=== PATIENT | male | born 2000 | race Caucasian/White ===

== ENCOUNTER 2020-04-29 13:27 | Emergency (ER) | payer OTHER ==
[~2020-04-29] VITALS: Ht 165.1 cm; Wt 74.1 kg
[2020-04-29 14:45] LABS: BASO # 0.1 10^3/uL (0.0-0.2); BASO % 0.3 % (0.0-1.0); EOS % 0.2 % (0.0-3.0); HEMATOCRIT 52.5 % (42.0-52.0); HEMOGLOBIN 17.7 g/dl (13.5-17.5); LYMPH # 0.7 10^3/uL (1.5-5.0); LYMPH % 4.6 % (24.0-44.0); MEAN CORPUSCULAR HEMOGLOBIN 30.9 pg (27.0-33.0); MEAN CORPUSCULAR HGB CONC 33.7 g/dl (32.0-36.5); MEAN CORPUSCULAR VOLUME 91.8 fl (80.0-96.0); MONO # 0.6 10^3/uL (0.0-0.8); NEUTROPHILS # 13.3 10^3/uL (1.5-8.5); NEUTROPHILS % 90.4 % (36.0-66.0); PLATELET COUNT, AUTOMATED 274 10^3/uL (150-450); RED BLOOD COUNT 5.72 10^6/uL (4.30-6.10); WHITE BLOOD COUNT 14.7 10^3/uL (4.0-10.0)
[2020-04-29] MEDS ORDERED: ONDANSETRON 4MG/2ML VIAL IV ONE (15:00)
[2020-04-29] MEDS ORDERED: NS 1,000 ML IV ONE (15:00)
[2020-04-29 15:20] LABS: ALBUMIN 4.7 GM/DL (3.2-5.2); ALT/SGPT 53 U/L (12-78); BILIRUBIN,DIRECT 0.1 MG/DL (0.0-0.2); BILIRUBIN,TOTAL 0.6 MG/DL (0.2-1.0); CK-MB VALUE MASS 1.1 NG/ML (<3.6); CPK CREATINE PHOSPHOKINASE 119 U/L (39-308); LIPASE 163 U/L (73-393); MB/CK RELATIVE INDEX 0.92 (< OR =4); TOTAL PROTEIN 8.7 GM/DL (6.4-8.2); TROPONIN I < 0.02 NG/ML (< 0.10)
--- NOTE | 2020-04-29 16:11 | ECGEPIP ---
[facility] - ED Test Date: 2020-04-29 Pat Name: ASHELY PAYTON Department: Room: - Gender: Male [place]: JFOX : 2000 Requested By: ITALIA Moreland PA-C Order Number: [id number] Reading MD: Jyothi Domínguez Measurements Intervals [place] Rate: 67 P: 10 KS: 152 QRS: 39 QRSD: 105 T: 43 QT: 391 QTc: 413 Interpretive Statements SINUS RHYTHM WITH MARKED SINUS ARRHYTHMIA NONSPECIFIC ST T WAVE CHANGES NO PRIOR ECG FOR COMPARISON Electronically Signed on 04-29-2020 16:11:33 EDT by Jyothi Domínguez
[2020-04-29] MEDS ORDERED: ISOVUE-370 76% 100ML VIAL As Ordered ONE (17:28)
--- NOTE | 2020-04-29 18:30 | REPVR ---
PROCEDURE INFORMATION: Exam: CT Abdomen And Pelvis With Contrast Exam date and time: 04/29/2020 5:19 PM Age: 19 years old Clinical indication: Abdominal pain; Additional info: L sided abd pain TECHNIQUE: Imaging protocol: Computed tomography of the abdomen and pelvis with intravenous contrast. Radiation optimization: All CT scans at this facility use at least one of these dose optimization techniques: automated exposure control; mA and/or kV adjustment per patient size (includes targeted exams where dose is matched to clinical indication); or iterative reconstruction. Contrast material: ISOVUE 370; Contrast volume: 100 ml; Contrast route: INTRAVENOUS (IV); COMPARISON: CR Abdomen,Flat Upright,PA CHEST 04/29/2020 2:59 PM FINDINGS: Liver: There is a diffuse decrease in hepatic parenchymal density, consistent with fatty infiltration. There are no focal liver lesions present. Gallbladder and bile ducts: The gallbladder is normal. Pancreas: The pancreas is normal. Spleen: The spleen is normal. Adrenals: The adrenal glands are normal. Kidneys and ureters: There is no evidence of hydronephrosis. Stomach and bowel: There is apparent long segment colonic mural thickening, possibly due to nondistention, but correlate with clinical information regarding colitis. No pneumatosis intestinalis. No bowel obstruction. The stomach is normal. Appendix: Normal appendix. Intraperitoneal space: There is no free intraperitoneal air visualized. There is no evidence of free intraperitoneal or pelvic fluid. Vasculature: The vasculature is normal. Lymph nodes: No lymphadenopathy. Bladder: The bladder is normal. Reproductive: Unremarkable as visualized. Bones/joints: Unremarkable. No acute fracture. IMPRESSION: 1. Findings of colitis, as above. 2. Hepatic steatosis. Electronically signed by: Rocio Lujan On 04/29/2020 18:30:17 PM
[2020-04-29] MEDS ORDERED: ONDA4TAB6 PO (18:48)
[2020-04-29 18:55] VITALS: BP 148/76
[2020-04-29 18:55] LABS: C REACTIVE PROTEIN QUANTITATIV < 0.30 MG/DL (0.00-0.30)
--- NOTE | 2020-04-30 12:09 | REP ---
ACUTE ABDOMINAL SERIES: 04/29/2020. CLINICAL HISTORY: Abdominal pain. FINDINGS: PA CHEST: No prior study. Lungs are well inflated and without infiltrate, effusion, atelectasis, or mass. Heart, mediastinal and hilar contours are normal. Aorta and airway are intact. Bones are unremarkable. No free air. FLAT AND UPRIGHT ABDOMEN: Scattered stool in the colon without dilatation. Small bowel loops are mostly fluid-filled. No air-fluid levels. No abnormal soft tissue calcifications or free air. Bones without acute finding. IMPRESSION: 1. Nonspecific gas pattern with mostly fluid-filled small bowel loops but no evidence for obstruction, mass, or free air. 2. No abnormal calcifications in the abdomen. 3. Negative PA chest. Electronically Signed by Pradip Urena MD 04/30/2020 06:53 P
== END 2020-04-29 18:57 | disposition home or self-care (01) ==
LOC: M ED 13:27
DX: E86.0 Dehydration (principal); R42 Dizziness and giddiness; D72.829 Elevated white blood cell count, unspecified; R74.8 Abnormal levels of other serum enzymes; R10.84 Generalized abdominal pain; R11.2 Nausea with vomiting, unspecified; R19.7 Diarrhea, unspecified; K76.0 Fatty (change of) liver, not elsewhere classified
CPT/HCPCS: 74021; 74177; 80047; 80076; 81001; 82550; 82553; 83690; 84484; 85025; 86140; 93005; 99284; J2405; Q9967